=== PATIENT | female | born 1960 ===

== ENCOUNTER 2025-03-20 12:40 | Outpatient (AMB) | payer OTHER, SELFPAY ==
--- NOTE | 2025-03-20 12:46 | A.OFFPC_ITS ---
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 PE Intake Note: New patient visit Marketing Analytics Lead Required: No Allergies zpack Allergy (Unknown, Uncoded 03/20/25 12:47) Rash Medication List - Last Reconciled 03/20/25 by Isabell Napoles PA-C levothyroxine 100 mcg PO DAILY multivitamin 1 tab PO DAILY Tobacco use date assessed: 03/20/25 Dental Screening Dental Screen Date: 03/20/25 Did you have a dental visit in the last 12 months?: Yes Did you have a dental problem in the last 6 months where you did not have access to dental care?: No Was dental information given to patient?: Patient has dentist HPI 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 She is transferring from [facility] and was last seen by myself about 1-2 years ago. No records available.. She significant past medical history of hypothyroidism, hx of left breast ca, osteoarthritis. She does complain today in general feeling fatigued and some symptoms of hypothyroidism but states that her TSH has always been normal. Breast: completed tamoxifen 10/23. States that she was diagnosed in 2016 Endo: on levothyroxine Msk: b/l knee replacement, left knee replacement was more recent Mammo: UTD 2x a year, follows with breast center Mohs Surgeon/General Dermatologist: a few years ago Bone density: never had, post menopausal since Colonoscopy: due in 2028 [facility] Social History Housing: House Patient Tobacco Use Status: Former Tobacco user (quit 35 years ago) Cigarettes Per Day: 15 Years Smoked: 7 e-Cigarette/Vaping Use: Never Used Second Hand Smoke Exposure: No service: No Current occupational status: employed Current occupation: [employer] Current occupational exposures/hazards: No Cognitive needs: No Hearing needs: No Vision needs: No Questionnaire PHQ-9 Over the last 2 weeks, how often have you been bothered by any of the following problems? 1. Little interest or pleasure in doing things: not at all 2. Feeling down, depressed, or hopeless: not at all 3. Trouble falling or staying asleep, or sleeping too much: not at all 4. Feeling tired or having little energy: not at all 5. Poor appetite or overeating: not at all 6. Feeling bad about yourself - or that you are a failure or have let yourself or your family down: not at all 7. Trouble concentrating on things, such as reading the newspaper or watching television: not at all 8. Moving or speaking so slowly that other people could have noticed. Or the opposite - being so fidgety or restless that you have been moving around a lot more than usual: not at all 9. Thoughts that you would be better off or of hurting yourself in some way: not at all Total score: 0 Depression Screening Interpretation: Negative Depression Screening Done: Yes 90242 - PHQ-9 Billing: Yes Source: Developed by Drs. Brenden Juares, Deborah Cortes, Bright Mason and colleagues, with an educational torito from [employer]. Thrive Questionnaire Date Thrive assessed: 03/15/25 I am a: Patient What is your living situation today?: I have a steady place to live Within the past 12 months, did the food you bought not last and you didn't have the money to get more?: Never true Within the past 12 months, did you worry whether your food would run out before you got money to buy more?: Never true Do you have trouble paying for medicines?: No Do you have trouble getting transportation to medical appointments?: No Do you have trouble paying your heating and electricity bill?: No Do you have trouble taking care of your child, family member or friend?: No Do you have trouble with day-to-day activities such as bathing, preparing meals, shopping, managing finances, etc.?: No Are you currently unemployed and looking for a job?: No Are you interested in more education?: I choose not to answer this question Please select the resources that you would like help with: None Currently or been in a relationship where the following occur: No concerns reported THRIVE Score: 0 AUDIT C Alcohol Use Questionnaire (AUDIT-C) 1. How often do you have a drink containing alcohol?: Never 2. How many drinks containing alcohol do you have on a typical day when you are drinking?: 1 or 2 3. How often do you have six or more drinks on one occasion?: Never Total Score: 0 JOHANNE-7 AMB Questionnaire JOHANNE-7 Date JOHANNE - 7 assessed: 03/20/25 Feeling nervous, anxious, or on edge: 0 = Not at all Not being able to stop or control worryin = Not at all Worrying too much about different things: 0 = Not at all Trouble relaxin = Not at all Being so restless that it is hard to sit still: 0 = Not at all Becoming easily annoyed or irritable: 0 = Not at all Feeling afraid as if something awful might happen: 0 = Not at all Total JOHANNE-7 score (0-4 normal; 5-9 mild; 10-14 moderate; 15-21 severe): 0 Source: Developed by Drs. Brenden Juares, Deborah Cortes, Bright Mason and colleagues, with an educational torito from [employer]. JOHANNE-7 Assessment Billing JOHANNE-7 Assessment Tool: JOHANNE-7 Assessment 33039 Physical exam (Primary Care) Vital Signs: Last Vital Signs Pulse 88 03/20/25 12:50 Resp 14 03/20/25 12:50 Pulse Ox 98 03/20/25 12:50 Oxygen Delivery Method Room Air 03/20/25 12:50 BMI result Body Mass Index 35.9 Depression Screening Interpretation: Negative Thrive Assessment: Date of Thrive Assessment Date Thrive assessed 03/15/25 03/15/25 12:52 Currently or been in a relationship where the following occur: No concerns reported Const Orientation/consciousness: patient oriented x3 HENMT Ears: hearing grossly normal bilaterally and TM's normal bilaterally General nose exam: No nasal polyps present Face and sinus: Yes sinuses nontender Mouth: Normal oral and palatal mucosa present Eyes Pupils: Equal, round and reactive pupils present EOM: EOMs intact bilaterally Neck Neck: Yes full ROM and Yes no lymphadenopathy Thyroid: Thyroid normal Chest Chest palpation & inspection: normal inspection of the chest Resp Auscultation: clear to auscultation bilaterally Cardio Rate: regular rate Rhythm: regular rhythm Heart sounds: S1 normal heart sound present and S2 normal heart sound present Peripheral pulses: Peripheral pulses 2+ throughout GI Other: Soft, nontender Auscultation: normal bowel sounds Rectal Exam - Female: deferred General: Yes no CVA tenderness Back/Spine/Pelvis Other: Nontender Back: no CVA tenderness Skin General skin exam: no rashes or lesions noted Neuro General: patient oriented x3, gait normal, CN's II-XI intact bilaterally and deep tendon reflexes 2+ bilaterally Cranial nerves: Yes Equal, round and reactive pupils present Motor exam (neuro): 5/5 motor strength present throughout Sensory Exam: double simultaneous stimulation for sensation normal Coordination: [id number]-[id number]-[id number] test normal and Romberg test negative Extrem General: Yes normal to inspection and Yes full ROM Psych Affect: normal affect Attitude: cooperative Thought process: Normal thought process present Thought content: Normal thought content present Insight: Good insight present (Psych) Judgement: Good judgement present (Psych) Coding Level of Care Code Est Pt Prev Care 40-64y(74487) Diagnoses Routine general medical examination at a health care facility Z00.00 Hypothyroid E03.9 Fatigue R53.83 IFG (impaired fasting glucose) R73.01 HX: breast cancer Z85.3 Additional Codes JOHANNE-7 Assessment Billing - JOHANNE-7 Assessment Tool: JOHANNE-7 Assessment 71290 ([id number]) PHQ-9 - 85430 - PHQ-9 Billing: Yes ([id number]) Assessment & Plan Assessment & Plan (1) Routine general medical examination at a health care facility: Code(s): Z00.00 - Encounter for general adult medical examination without abnormal findings Plan: reviewed labs ordered bone density ordered (2) Hypothyroid: Code(s): E03.9 - Hypothyroidism, unspecified Category: Medical Plan: TSH ordered. Refilled levothyroxine 100 mcg (3) Fatigue: Code(s): R53.83 - Other fatigue Category: Medical Plan: Labs ordered today. We will follow up pending test results (4) IFG (impaired fasting glucose): Code(s): R73.01 - Impaired fasting glucose Category: Medical Plan: A1c ordered (5) HX: breast cancer: Code(s): Z85.3 - Personal history of malignant neoplasm of breast Category: Medical Plan: Following with the breast center. Up-to-date on mammogram and screening Orders: Orders Comprehensive Gerry. Panel Fast Today E03.9 - Hypothyroidism, unspecified, R53.83 - Other fatigue, R73.01 - Impaired fasting glucose TSH reflex Free T4 Today E03.9 - Hypothyroidism, unspecified, R53.83 - Other fatigue, R73.01 - Impaired fasting glucose UA CC w/rflx Micro + Cult Today E03.9 - Hypothyroidism, unspecified, R53.83 - Other fatigue, R73.01 - Impaired fasting glucose, Z13.220 - Encounter for screening for lipoid disorders Magnesium Today E03.9 - Hypothyroidism, unspecified, R53.83 - Other fatigue, R73.01 - Impaired fasting glucose Vitamin D 25-OH Total Today E03.9 - Hypothyroidism, unspecified, R53.83 - Other fatigue, R73.01 - Impaired fasting glucose XR DEXA axial skeleton Today E03.9 - Hypothyroidism, unspecified, N95.1 - Menopausal and female climacteric states, Z85.3 - Personal history of malignant neoplasm of breast Complete Blood Count Auto Diff Today E03.9 - Hypothyroidism, unspecified, R53.83 - Other fatigue, R73.01 - Impaired fasting glucose Hemoglobin A1c Today E03.9 - Hypothyroidism, unspecified, R53.83 - Other fatigue, R73.01 - Impaired fasting glucose Lipid Panel Today E03.9 - Hypothyroidism, unspecified, R53.83 - Other fatigue, R73.01 - Impaired fasting glucose Vitamin B12 and Folate Today E03.9 - Hypothyroidism, unspecified, R53.83 - Other fatigue, R73.01 - Impaired fasting glucose IRON PROFILE Today E03.9 - Hypothyroidism, unspecified, R53.83 - Other fatigue, R73.01 - Impaired fasting glucose Ferritin Today E03.9 - Hypothyroidism, unspecified, R53.83 - Other fatigue, R73.01 - Impaired fasting glucose Medications: New levothyroxine 100 mcg PO DAILY 90 tabs 3RF
[2025-03-20 12:50] VITALS: PULSE 88; RESP 14; O2SAT 98; BMI 35.9
--- OUTSIDE RECORDS SUMMARY | 2025-03-20 13:23 | XMS_ITS ---
[facility] Name [facility] Organization Unknown History of Medication Use Medication Directions Dispensed Refills Start Date End Date Stat us levothyroxine (SYNTHROID, LEVOTHROID) 100 MCG tablet Take 1 tablet (100 mcg total) by mouth daily on an empty stomach. 01/12/2025 02/08/2025 active Problems Problem Status Onset Date Problem Type Date of Resoluti on Source Hypothyroidism, unspecified type active EncounterDiagnosisAct CCT Encounters Encounter Type Encounter Reason Primary Diagnosis Location Date Ambulatory Other Other [facility] 02/08/2025 Care Team Organization Name Specialty Phone Email Start Date End Da te [email or web address] PCP Pet Ambassador 02/11/2025 03/12/2025 [email or web address] JOSEE OSEI Primary Care 02/08/2025 [email or web address] NO PCP Primary Care 02/08/2025 [employer] 02/08/2025
--- OUTSIDE RECORDS SUMMARY | 2025-03-20 13:23 | XMS_ITS | Clinical Summary ---
Author Organization [facility] Address [address] [place] [address] Care Team Providers Care Transportation Job Titles Name Role Phone Isabell Napoles Primary Care Provider [phone] Allergies No known active allergies Medications levothyroxine (SYNTHROID, LEVOTHROID) 100 MCG tabletIndication s:Hypothyroidism , unspecified type Take 1 tablet (100 mcg total) by mouth daily on an empty stomach. 30 tablet 1 02/08/2025 Active Active Problems No known active problems Encounters Date Type Department Care Team Description 02/08/2025 8:30 AM EDT Office Visit [facility] [address] [phone] Reid Lowery MD Devitt, Anna C, APRN Hypothyroidism, unspecified type (Primary Dx) 02/08/2025 Travel from Last 3 Months Social History Tobacco Use Types Packs/Day Years Used Date Smoking Tobacco: Never Smokeless Tobacco: Never Tobacco Cessation:Counseling Given: Not Answered Comments Unknown Sex and Gender Information Value Date Recorded Sex Assigned at Not on file Legal Sex Female 8:25 AM EDT Gender Identity Female 02/08/2025 8:26 AM EDT Sexual Orientation Not on file Last Filed Vital Signs Vital Sign Reading Time Taken Comments Blood Pressure 132/85 02/08/2025 8:44 AM EDT Pulse 73 02/08/2025 8:44 AM EDT Temperature 36.7 ??C (98 ??F) 02/08/2025 8:44 AM EDT Respiratory Rate 16 02/08/2025 8:44 AM EDT Oxygen Saturation 95% 02/08/2025 8:44 AM EDT Inhaled Oxygen Concentration - - Weight 97.1 kg (214 lb) 02/08/2025 8:44 AM EDT Height 168.9 cm (5' 6.5 ) 02/08/2025 8:44 AM EDT Body Mass Index 34.02 02/08/2025 8:44 AM EDT Plan of Treatment Health Maintenance Due Date Last Done Comments Hepatitis C Virus Screening 1961 HIV Screening 1974 DTaP/Tdap/Td Vaccines (1 - Tdap) 1980 Pap Smear (Ages 21-65) 1982 Mammogram 2001 Colonoscopy 2006 Pneumococcal Vaccines 50+ (1 of 1 - PCV) 2011 Zoster (Shingles) Vaccine (1 of 2) 2011 COVID-19 Vaccine (3 - 2023-2 5 season) 2024 03/05/2021, 02/05/2021 Influenza Vaccine 05/31/2025 RSV Vaccine 60 years and older and Patients (1 - 1-dose 75+ series) 2036 Hepatitis B Vaccines Aged Out No long er eligible based on patient's age to complete this topic [place] [address] [place] [address] Care Teams Transportation Job Titles Relationship Specialty Start Date End Date Isabell Napoles PA [address] [place] [address] PCP - General Adult Health - PA/APNP/QUALITY SPECIALIST/SCHOOL HEALTH AIDE 02/08/25
== END 2025-03-20 15:17 | disposition home or self-care (01) ==
LOC: HO.HMCFM 12:40
PROVIDERS: PCP Physician Assistant; Visit Provider Physician Assistant
DX: Z00.00 Encounter for general adult medical examination without abnormal findings (principal); E03.9 Hypothyroidism, unspecified; R53.83 Other fatigue; R73.01 Impaired fasting glucose; Z85.3 Personal history of malignant neoplasm of breast

== ENCOUNTER → 2025-03-20 12:40 | Outpatient (BNVA) | payer OTHER, SELFPAY | PROVIDERS: PCP Physician Assistant; Visit Provider Physician Assistant | DX: Z00.00 Encounter for general adult medical examination without abnormal findings (principal); E03.9 Hypothyroidism, unspecified; R53.83 Other fatigue; R73.01 Impaired fasting glucose; Z85.3 Personal history of malignant neoplasm of breast; Z96.653 Presence of artificial knee joint, bilateral | CPT/HCPCS: 96127 ==

== ENCOUNTER 2025-03-22 08:06 | Outpatient (REF) | payer OTHER, SELFPAY ==
[2025-03-22 11:19] LABS: MANUAL DIFF FLAG NO
[2025-03-22 11:38] LABS: Basophils Percent Auto 0.7 % (0-2); Eosinophils Absolute Auto 0.2 X10*3/uL (0.0-0.4); Eosinophils Percent Auto 4.1 % (0-4); Hematocrit 42.4 % (37.0-47.0); Hemoglobin 14.1 g/dl (12.0-16.0); Imm Gran Abs Auto 0.05 X10*3/uL (0.00-0.03); Imm Gran Pct Auto 0.9 % (0.0-0.4); Lymphocytes Absolute Auto 1.5 X10*3/uL (1.2-4.9); Lymphocytes Percent Auto 27.5 % (20-40); Mean Corpuscular HGB Conc 33.3 g/dl (31.0-35.0); Mean Corpuscular Hemoglobin 30.3 pg (27.0-33.0); Mean Platelet Volume 9.8 fL (9.4-12.3); Monocytes Absolute Auto 0.5 X10*3/uL (0.1-1.2); Monocytes Percent Auto 9.4 % (2-11); Neutrophils Absolute Auto 3.1 x10*3/uL (2.0-8.3); Neutrophils Percent Auto 57.4 % (45-73); Platelet Count 209 X10*3/uL (160-400); Red Blood Count 4.66 X10*6/uL (4.20-5.50); Red Cell Distribution Width 12.3 % (11.0-16.0); White Blood Count 5.3 X10*3/uL (4.8-10.8)
[2025-03-22 11:47] LABS: Estimated Average Glucose 105 mg/dL; Hemoglobin A1c % 5.3 % (<6.0); Total Hemoglobin (HGBA1C) 3670.7879 umol/L
[2025-03-22 12:08] LABS: Alanine Aminotransferase 35 U/L (0-31); Albumin Level 4.3 g/dL (3.5-5.0); Alkaline Phosphatase 125 U/L (39-117); Anion Gap 9 (12-20); Aspartate Amino Transferase 28 U/L (5-31); Bilirubin Total 0.6 mg/dL (0.0-1.0); Blood Urea Nitrogen 16 mg/dL (9-16); Calcium 9.1 mg/dL (8.4-10.2); Carbon Dioxide 28 mmol/L (22-29); Chloride 109 mmol/L (96-108); Cholesterol 173 mg/dL (<200); Estimated Glomerular Filt Rate > 60; Ferritin 188 ng/mL (10-250); Glucose Fasting 101 mg/dL (60-99); HDL Cholesterol 54 mg/dL (>40); Iron 116 mcg/dL (30-160); LDL Cholesterol Calculated 100 mg/dL (<100); Magnesium 1.9 mg/dL (1.6-2.6); Percent Iron Saturation 49 % (15-50); Potassium 4.2 mmol/L (3.3-5.1); Sodium 142 mmol/L (135-145); TSH reflex Free T4 1.95 uIU/mL (0.32-4.0); Total Iron Binding Capacity 238 mcg/dL (228-428); Triglycerides 99 mg/dL (<150); Unsaturated Iron Binding 122 ug/dL; Vitamin D 25-OH Total 46.2 ng/mL (>30)
[2025-03-22 12:28] LABS: Vitamin B12 432 pg/mL (200-900)
[2025-03-22 14:31] LABS: Appearance Urine Clear; Color Urine Yellow; Glucose Urine UA Negative (Negative); Leukocyte Esterase Urine Negative (Negative); Nitrite Urine Negative (Negative); PH 5.5 (5.0-9.0); Urine Blood Negative (Negative); Urine Ketones Negative (Negative); Urine Protein Negative (Neg-Trace)
== END 2025-03-22 08:07 | disposition home or self-care (01) ==
LOC: HO.WFDLDS 08:06
PROVIDERS: Visit Provider Physician Assistant
DX: R73.01 Impaired fasting glucose (principal); E03.9 Hypothyroidism, unspecified; R53.83 Other fatigue; Z13.220 Encounter for screening for lipoid disorders
CPT/HCPCS: 36415; 80053; 80061; 81003; 82306; 82607; 82728; 82746; 83036; 83540; 83735; 84443; 85025

== ENCOUNTER 2025-06-07 10:38 | Outpatient (REF) | payer OTHER, SELFPAY ==
--- OUTSIDE RECORDS SUMMARY | 2025-06-07 10:41 | XMS_ITS ---
Author Name [facility] Organization Unknown History of Medication Use Medication [...] Primary Diagnosis Location Date Ambulatory Other Other [employer] 02/08/2025 Care Team Organization Name Specialty Phone Email Start Date End Da te [employer] PCP Manager Digital 02/11/2025 03/12/2025 [employer] JOSEE OSEI Primary Care 02/08/2025 [employer] NO PCP Primary Care 02/08/2025 [employer] 02/08/2025
--- OUTSIDE RECORDS SUMMARY | 2025-06-07 10:41 | XMS_ITS | Clinical Summary ---
Author Organization [facility] Address [address] [place] [address] Care Team Providers Care Rn Pediatric Name Role Phone Isabell Napoles Primary Care Provider [phone] Allergies No known active allergies Medications levothyroxine (SYNTHROID, LEVOTHROID) 100 MCG tabletIndication s:Hypothyroidism , unspecified type Take 1 tablet (100 mcg total) by mouth daily on an empty stomach. 30 tablet 1 02/08/2025 Active Active Problems No known active problems Social History Tobacco Use Types Packs/Day Years [...] 73 02/08/2025 8:44 AM EDT Temperature 36.7 C (98 F) 02/08/2025 8:44 AM EDT Respiratory Rate 16 [...] patient's age to complete this topic Insurance [facility] Care Teams Rn Pediatric Relationship Specialty Start Date End Date Isabell Napoles PA [address] [place] [address] PCP - General Adult Health - PA/NOLBERTO/LEGAL SERVICES PROFESSIONAL/CRIME SCENE INVESTIGATOR 02/08/25
[2025-06-07 15:41] LABS: Alanine Aminotransferase 35 U/L (0-31); Albumin Level 4.6 g/dL (3.5-5.0); Alkaline Phosphatase 120 U/L (39-117); Aspartate Amino Transferase 30 U/L (5-31); Total Protein 7.4 g/dL (6.5-8.0)
[2025-06-12 14:39] LABS: Alk.Phos Iso. Macrohepatic 0 % (<=0); Alk.Phos Isoenzymes Bone 49 % (28-66); Alk.Phos Isoenzymes Intest 8 % (1-24); Alk.Phos Isoenzymes Liver 43 % (25-69); Alk.Phos Isoenzymes Placental 0 % (<=0); Alk.Phos Isoenzymes Total 107 U/L (37-153)
== END 2025-06-07 10:39 | disposition home or self-care (01) ==
LOC: HO.WFDLDS 10:38
PROVIDERS: Visit Provider Physician Assistant
DX: R79.89 Other specified abnormal findings of blood chemistry (principal)
CPT/HCPCS: 36415; 80076; 84080

== ENCOUNTER 2025-08-09 07:55 | Outpatient (REF) | payer OTHER, SELFPAY ==
--- NOTE | ~2025-08-09 | MM_ITS ---
EXAMINATION: DXA BONE DENSITY AXIAL HISTORY: Z85.3 - Personal history of malignant neoplasm of breast TECHNIQUE: Letao Dual energy absorptiometry (DEXA) of the lumbar spine, total left hip, and femoral neck was performed. COMPARISON: There are no prior studies for comparison. FINDINGS: The bone mineral density of the lumbar spine is 1.355 g/cm2, corresponding to a T-score of 1.5, and a Z-score of 2.0. This is indicative of normal bone mineral density. The bone mineral density of the left total hip is 1.056 g/cm2, corresponding to a T-score of 0.4, and a Z-score of 0.8. This is indicative of normal bone mineral density. The bone mineral density of the left femoral neck is 1.054 g/cm2, corresponding to a T-score of 0.1, and a Z-score of 0.9. This is indicative of normal bone mineral density. FRACTURE RISK: The FRAX index suggests a risk of major osteoporotic fracture of 6.0%, and of hip fracture 0.1%. MM/XR DEXA axial skeleton IMPRESSION: Based on bone mineral density, and according to World Health Organization (WHO) criteria, the diagnosis is consistent with normal bone mineral density. Statistically, 68% of repeat scans fall within 1 SD (+/- 0.010 g/cm2 for AP spine L1-L4) and 1 SD (+/- 0.012 g/cm2 for femur total) FRAX is a trademark of the [employer]'s [place] for Metabolic Bone Disease, a World Health Organization (WHO) Collaborating Center. Electronically signed by: Brenden Banerjee MD 08/09/2025 08:45 AM EDT
--- OUTSIDE RECORDS SUMMARY | 2025-08-09 07:58 | XMS_ITS | Clinical Summary ---
Author Organization [facility] Address [address] [place] [address] Care Team Providers Care Wall Cleaner Name Role Phone Isabell Napoles Primary Care Provider [phone] Allergies No known active allergies Medications levothyroxine [...] Zoster (Shingles) Vaccine (1 of 2) 2011 Influenza Vaccine 05/31/2025 COVID-19 Vaccine (3 - 2024-2 6 season) 2025 03/05/2021, 02/05/2021 RSV Vaccine 60 years and older and Patients (1 - 1-dose 75+ series) 2036 Hepatitis B Vaccines Aged Out No long er eligible based on patient's age to complete this topic Insurance [facility] Care Teams Wall Cleaner Relationship Specialty Start Date End Date Isabell Napoles PA [address] [place] [address] PCP - General Adult Health - PA/NOLBERTO/CLOTHING CUTTER/APPLICATIONS PROGRAMMER ANALYST 02/08/25
== END 2025-08-09 07:56 | disposition home or self-care (01) ==
LOC: HO.MAMMO 07:55
PROVIDERS: Visit Provider Physician Assistant
DX: Z13.820 Encounter for screening for osteoporosis (principal); Z78.0 Asymptomatic menopausal state; Z85.3 Personal history of malignant neoplasm of breast; E03.9 Hypothyroidism, unspecified
CPT/HCPCS: 77080

== ENCOUNTER → 2025-08-09 08:15 | Outpatient (BNV) | payer OTHER, SELFPAY | PROVIDERS: Visit Provider Radiology Diagnostic Radiology | DX: E28.39 Other primary ovarian failure (principal) | CPT/HCPCS: 77080 ==

== ENCOUNTER 2025-10-08 08:12 | Outpatient (REF) | payer OTHER, SELFPAY ==
--- NOTE | ~2025-10-08 | US_ITS ---
CLINICAL HISTORY: R79.89 - Other specified abnormal findings of blood chemistry Exam: 1. US abdomen complete 2. Duplex ultrasound of the main portal vein Comparison: None provided Findings: Liver measures 13 cm in long axis. Generalized increased echotexture throughout the liver with areas of nodularity along the periphery of the liver. Several simple cysts within the liver measuring up to 19 mm in size. No solid hepatic mass lesions. No intrahepatic biliary ductal dilatation. Common bile duct is within normal limits. Gallbladder is unremarkable. Pancreas and spleen are within normal limits. Kidneys are of normal echotexture without focal lesion, nephrolithiasis hydronephrosis. Aorta and inferior vena cava are patent. No free fluid. Duplex ultrasound of the portal vein was performed. This included real-time grayscale, color spectral Doppler analysis, and color Doppler flow imaging. Main portal vein is patent with hepatopetal flow. IMPRESSION: 1. Echogenic liver with areas of peripheral nodularity. This suggests fatty infiltration or medical liver disease. 2. Simple hepatic cysts. This document has been electronically signed by: Nish Oliveros MD on 10/09/2025 04:05:34
--- OUTSIDE RECORDS SUMMARY | 2025-10-08 08:32 | XMS_ITS | Clinical Summary ---
Author Organization [facility] Address [address] [place] [address] Care Team Providers Care Paper Latcher Name Role Phone Isabell Napoles Primary Care Provider [phone] Allergies No known active allergies Medications levothyroxine [...] 6 season) 2025 03/05/2021, 02/05/2021 RSV Vaccine 50 years and older and Patients (1 - 1-dose 75+ series) 2036 Hepatitis B Vaccines Aged Out No long er eligible based on patient's age to complete this topic Insurance [facility] Care Teams Paper Latcher Relationship Specialty Start Date End Date Isabell Napoles PA [address] [place] [address] PCP - General Adult Health - PA/NOLBERTO/MEDICINE TECHNOLOGIST/EXPERIMENTAL MECHANIC ELECTRICAL 02/08/25
--- OUTSIDE RECORDS SUMMARY | 2025-10-08 08:32 | XMS_ITS | Clinical Summary ---
Author Organization [facility] Address [address] [place] [phone] Phone Care Team Providers Care Division Controller Name Role Phone Jackie Erazo MD Primary Care Provider Unava ilable Allergies Active Allergy Reactions Criticality Noted Date Comments Sulfamethoxazole-Trimethoprim 2018 Phenytoin Sodium Rash Low 02/12/2008 Azithromycin Rash Low 05/26/2019 Medications levothyroxine (SYNTHROID, LEVOTHROID) 100 MCG tablet Take 100 mcg by mouth. 9 Active cholecalciferol (VITAMIN D3) 2,000 unit capsule Take 400 mg by mouth. Active NON FORMULARY Tumeric Active therapeutic multivitamin tablet Take 1 tablet by mouth daily. Active Social History Tobacco Use Types Packs/Day Years Used Date Smoking Tobacco: Never Smokeless Tobacco: Never Alcohol Use Standard Drinks/Week Comments Yes 0 (1 standard drink = 0.6 oz pur e alcohol) 'occasionally' Education Answer Date Recorded Are you interested in more education? Not on bruna e 02/25/2023 Are you concerned about learning? Not on file 02/25/2023 No 02/25/2023 No 02/25/2023 Digital Access Answer Date Recorded No 03/28/2023 No 03/28/2023 No 03/28/2023 Reliable internet access at home? Not on file 03/28/2023 Device with a working camera? Not on file Comments Unknown Sex and Gender Information Value Date Recorded Sex Assigned at Not on file Legal Sex Female 2:35 PM EDT Gender Identity Not on file Sexual Orientation Not on file Last Filed Vital Signs Vital Sign Reading Time Taken Comments Blood Pressure 142/87 05/26/2019 6:04 PM EDT Pulse 99 05/26/2019 6:04 PM EDT Temperature 36.8 C (98.2 F) 05/26/2019 6:04 PM EDT Respiratory Rate 18 05/26/2019 6:04 PM EDT Oxygen Saturation 97% 05/26/2019 6:04 PM EDT Inhaled Oxygen Concentration - - Weight 88.8 kg (195 lb 12.8 oz) 05/26/2019 6:04 PM EDT Height 167.6 cm (5' 6 ) 05/26/2019 6:04 PM EDT Body Mass Index 31.6 05/26/2019 6:04 PM EDT Plan of Treatment Not on file Medical Devices Not on file Insurance [facility] [place] [place] Address: [address] [address] Care Teams Division Controller Relationship Specialty Start Date End Date Jackie Erazo MD PCP - General Internal Medicine 05/26/19 Additional Source Comments The information contained in this document represents components of the legal health record. It is not the complete legal health record.[facility]
== END 2025-10-08 08:13 | disposition home or self-care (01) ==
LOC: HO.US 08:12
PROVIDERS: Visit Provider Physician Assistant
DX: R79.89 Other specified abnormal findings of blood chemistry (principal)
CPT/HCPCS: 76700

== ENCOUNTER → 2025-10-08 08:15 | Outpatient (BNV) | payer OTHER, SELFPAY | PROVIDERS: Visit Provider Radiology Diagnostic Radiology | DX: K76.89 Other specified diseases of liver (principal); R93.2 Abnormal findings on diagnostic imaging of liver and biliary tract | CPT/HCPCS: 76700 ==